=== PATIENT | female | born 1950 ===

== ENCOUNTER 2019-05-06 07:09 | Outpatient (CLI) | payer OTHER | END 2019-05-06 07:17 | disposition home or self-care (01) | LOC: NUCLEAR 07:09 | DX: I11.9 Hypertensive heart disease without heart failure (principal); I20.8 Other forms of angina pectoris | CPT/HCPCS: 78452; 93017; A9500; J1250 ==

== ENCOUNTER 2021-06-04 12:00 | Outpatient (CLI) | payer OTHER | END 2021-06-04 13:00 | disposition home or self-care (01) | LOC: ASH CLINIC 12:00 | PROVIDERS: ATTEND Emergency Medicine | DX: Z23 Encounter for immunization (principal); U07.1 COVID-19 ==

== ENCOUNTER 2021-06-04 16:21 | Emergency (ER) | payer OTHER ==
[~2021-06-04] VITALS: Ht 160 cm; Wt 69.9 kg
== END 2021-06-04 22:25 | disposition home or self-care (01) ==
LOC: ER 16:21
DX: U07.1 COVID-19 (principal)

== ENCOUNTER → 2021-06-13 | Emergency (ER) | payer OTHER | END | disposition left against medical advice (07) | LOC: ER 00:52 | DX: Z53.20 Procedure and treatment not carried out because of patient's decision for unspecified reasons (principal) ==

== ENCOUNTER 2022-03-04 06:00 | Day surgery (SDC) | payer OTHER ==
[~2022-03-04 06:00] MED LIST: METFORMIN HCL500 M3; MICARDIS80 MG; NEURONTIN600 M1
[2022-03-04] MEDS ORDERED: MACROBID 100 M100 MG PO (10:19)
[2022-03-04] MEDS ORDERED: ULTRACET PO (10:19)
== END 2022-03-04 14:10 | disposition home or self-care (01) ==
LOC: CIR.AMB 06:00
PROVIDERS: ATTEND Obstetrics & Gynecology Gynecology
DX: N81.11 Cystocele, midline (principal); N81.6 Rectocele; N81.5 Vaginal enterocele; Z20.822 Contact with and (suspected) exposure to COVID-19; I10 Essential (primary) hypertension; Z86.16 Personal history of COVID-19; E78.00 Pure hypercholesterolemia, unspecified; J45.909 Unspecified asthma, uncomplicated; Z79.82 Long term (current) use of aspirin; K46.9 Unspecified abdominal hernia without obstruction or gangrene

== ENCOUNTER 2025-05-09 08:00 | Day surgery (SDC) | payer OTHER ==
[~2025-05-09 08:00] MED LIST changes: +COZAAR25 MG PO; +MACROBID 100 M100 MG PO; +METFORMIN HCL500 M3 PO; +NAMENDA1 EACH PO; +PRILOSEC OTC20 MG PO; +SINGULAIR10 MG PO; +ULTRACET PO; +ZOLOFT50 MG PO
[2025-05-09] MEDS ORDERED: CEFAZOLIN SODIUM 1,000 MG VIAL IV SCH (12:15)
[2025-05-09] MEDS ORDERED: CEFAZOLIN SODIUM 1,000 MG VIAL IJ ONE (12:15)
[2025-05-09] MEDS ORDERED: LIDOCAINE HCL 1%/EPINEPHRINE 20ML VIAL IJ ONE (12:15)
[2025-05-09] MEDS ORDERED: GENTAMICIN SULFATE 40 MG/ML VIAL IR ONE (12:15)
[2025-05-09] MEDS ORDERED: CHLORHEXIDINE GLUCONATE 120 ML BOTTLE TOP ONE (12:15)
[2025-05-09] MEDS ORDERED: MACROBID 100 M100 MG PO (12:25)
[2025-05-09] MEDS ORDERED: TRAM1TAB98 PO (12:25)
== END 2025-05-09 16:45 | disposition home or self-care (01) ==
LOC: CIR.AMB 08:00
PROVIDERS: ATTEND Obstetrics & Gynecology Gynecology
DX: N81.11 Cystocele, midline (principal); N81.5 Vaginal enterocele